=== PATIENT | male | born 1945 | race Caucasian/White ===

== ENCOUNTER → 2016-11-25 | Outpatient (CLI) | payer MEDICARE, BC ==
[2016-11-25 10:13] LABS: BASOPHILS % (AUTO) 0.5 % (0-2); EOSINOPHILS # (AUTO) 0.1 T/MM3 (0-0.5); EOSINOPHILS % (AUTO) 1.6 % (0-4); HGB - HEMOGLOBIN 13.6 GM/DL (13.5-17.5); IMMATURE GRANULOCYTE # (AUTO) 0.01 T/MM3 (0.00-0.03); IMMATURE GRANULOCYTE % (AUTO) 0.3 % (0.0-0.5); LYMPHOCYTES # (AUTO) 1.1 T/MM3 (1-4.8); MEAN CORPUSCULAR HGB 32.4 UUG (26-34); MEAN CORPUSCULAR VOLUME 95.2 UM3 (80-100); MEAN PLATELET VOLUME 9.2 UM3 (9.4-12.4); MONOCYTES # (AUTO) 0.3 T/MM3 (0-0.8); MONOCYTES % (AUTO) 8.2 % (0-9.0); NEUTROPHILS #(AUTO)-ABSOLUTE 2.3 T/MM3 (1.8-7.7); NEUTROPHILS % (AUTO) 59.4 % (33-66); WBC - WHITE BLOOD COUNT 3.8 T/MM3 (4.5-11.0)
[2016-11-25 10:22] LABS: ALBUMIN 4.3 G/DL (3.5-5.0); ALBUMIN/GLOBULIN RATIO 1.5 RATIO (1.1-2.2); ALKALINE PHOSPHATASE 43 U/L (38-126); ALT (SGPT) 33 U/L (21-72); ANION GAP 11 MEQ/L (5-15); AST (SGOT) 28 U/L (17-59); BUN/CREATININE RATIO 21 RATIO (6-26); CHLORIDE 100 MEQ/L (98-107); CO2 - CARBON DIOXIDE 32 MEQ/L (22-30); CREATININE 0.9 MG/DL (0.8-1.5); GLOMERULAR FILTRATION RATE 83; GLUCOSE 147 MG/DL (75-110); POTASSIUM 5.2 MEQ/L (3.6-5); SODIUM 143 MEQ/L (134-144); TOTAL PROTEIN 7.1 G/DL (6.3-8.2)
[2016-11-25 10:51] LABS: THYROID STIM HORMONE-TSH 1.56 MIU/L (0.47-4.68)
== END ==
LOC: LAB 09:44
PROVIDERS: ATTEND Family Medicine
DX: R00.2 Palpitations (principal)
CPT/HCPCS: 36415; 80053; 83735; 84443; 85025